=== PATIENT | female | born 1950 | race Caucasian/White ===

== ENCOUNTER → 2017-03-31 09:52 | Outpatient (CLI) | payer MEDICARE, OTHER ==
[2017-03-31 10:19] LABS: HEMATOCRIT 39.4 % (36.0-48.0); HEMOGLOBIN 13.4 g/dL (12-16); MCH 32.4 pg (26.0-34.0); MCV 95.4 fL (80.0-100.0); PLATELET COUNT 251 10x3/uL (130-400); RBC 4.13 10x6/uL (4.00-5.40); RDW 13.3 % (11.5-14.5); WBC 9.3 10x3/uL (4.8-10.8)
[2017-03-31 10:49] LABS: ALBUMIN 3.4 g/dL (3.4-5.0); ANION GAP 11.5 mmol/L (8-16); BILIRUBIN - TOTAL 0.36 mg/dL (0.2-1.3); CALCIUM 8.8 mg/dL (8.5-10.1); CARBON DIOXIDE 29.5 mmol/L (21.0-32.0); CHOL - HDL RATIO 2.7 ratio (2.3-4.1); CREATININE - SERUM 0.9 mg/dL (0.6-1.3); LDL-HDL RATIO 1.5 ratio (1.5-3.5); PROTEIN - SERUM 6.6 g/dL (6.4-8.2); THYROID STIMULATING HORMONE 0.89 uIU/mL (0.36-3.74)
[2017-03-31 10:50] LABS: EOSINOPHILS 1 % (0-7); LYMPHOCYTES 54 % (15-50); MONOCYTES 13 % (2-11); NEUTROPHILS 31 % (40-80)
[2017-03-31 10:51] LABS: PLATELET ESTIMATE NORMAL
== END | disposition home or self-care (01) ==
LOC: D.LAB 09:52
PROVIDERS: Family Medicine
DX: E78.5 Hyperlipidemia, unspecified (principal); I20.9 Angina pectoris, unspecified; R53.83 Other fatigue; Z00.01 Encounter for general adult medical examination with abnormal findings

== ENCOUNTER → 2017-10-03 09:06 | Outpatient (CLI) | payer MEDICARE, OTHER ==
[2017-10-03 09:30] LABS: BASOPHILS 0.3 % (0-2); EOSINOPHILS 1.2 % (0-7); HEMATOCRIT 41.6 % (36.0-48.0); HEMOGLOBIN 14.3 g/dL (12-16); IMMATURE GRANULOCYTES 0.2 % (0-5); LYMPHOCYTES 45.8 % (15-50); MCH 31.9 pg (26.0-34.0); MCHC 34.4 g/dL (31.0-37.0); MCV 92.9 fL (80.0-100.0); MONOCYTES 9.8 % (2-11); NEUTROPHILS 42.7 % (40-80); PLATELET COUNT 285 10x3/uL (130-400); RBC 4.48 10x6/uL (4.00-5.40); RDW 13.3 % (11.5-14.5); WBC 9.9 10x3/uL (4.8-10.8)
[2017-10-03 09:48] LABS: ALBUMIN 3.7 g/dL (3.4-5.0); ALKALINE PHOSPHATASE 85 U/L (46-116); ALT (SGPT) 33 U/L (10-68); BILIRUBIN - TOTAL 0.42 mg/dL (0.2-1.3); CALC OSMOLALITY 281 mosm/kg (275-300); CALCIUM 9.3 mg/dL (8.5-10.1); CHLORIDE - SERUM 103 mmol/L (98-107); CHOL - HDL RATIO 3.4 ratio (2.3-4.1); CHOLESTEROL, TOTAL 224 mg/dL (0-200); CREATININE - SERUM 0.7 mg/dL (0.6-1.3); GLUCOSE 101 mg/dL (74-106); HDL CHOLESTEROL 66 mg/dL (32-96); LDL CHOLESTEROL 139 mg/dL (0-100); LDL-HDL RATIO 2.1 ratio (1.5-3.5); POTASSIUM - SERUM 4.3 mmol/L (3.5-5.1); SODIUM 139 mmol/L (136-145); TRIGLYCERIDE 97 mg/dL (30-200); UREA NITROGEN 23 mg/dL (7-18); eGFR NON AFRICAN AMERICAN 88 mL/min (90-120)
== END | disposition home or self-care (01) ==
LOC: D.LAB 08:00
PROVIDERS: Family Medicine
DX: E78.5 Hyperlipidemia, unspecified (principal); R55 Syncope and collapse

== ENCOUNTER → 2018-04-22 10:06 | Outpatient (CLI) | payer MEDICARE, OTHER ==
[2018-04-22 10:29] LABS: HEMATOCRIT 39.2 % (36.0-48.0); HEMOGLOBIN 13.6 g/dL (12-16); MCH 33.3 pg (26.0-34.0); MCHC 34.7 g/dL (31.0-37.0); MCV 95.8 fL (80.0-100.0); MEAN PLATELET VOLUME 8.9 fL (7.4-10.4); PLATELET COUNT 267 10x3/uL (130-400); RBC 4.09 10x6/uL (4.00-5.40); RDW 13.6 % (11.5-14.5); WBC 10.4 10x3/uL (4.8-10.8)
[2018-04-22 10:59] LABS: ALBUMIN 3.7 g/dL (3.4-5.0); ALKALINE PHOSPHATASE 89 U/L (46-116); ALT (SGPT) 35 U/L (10-68); BILIRUBIN - TOTAL 0.34 mg/dL (0.2-1.3); CALC OSMOLALITY 282 mosm/kg (275-300); CALCIUM 8.7 mg/dL (8.5-10.1); CARBON DIOXIDE 33.8 mmol/L (21.0-32.0); CHLORIDE - SERUM 104 mmol/L (98-107); CHOL - HDL RATIO 4.1 ratio (2.3-4.1); CHOLESTEROL, TOTAL 245 mg/dL (0-200); CREATININE - SERUM 0.7 mg/dL (0.6-1.3); GLUCOSE 87 mg/dL (74-106); HDL CHOLESTEROL 60 mg/dL (32-96); LDL CHOLESTEROL 163 mg/dL (0-100); LDL-HDL RATIO 2.7 ratio (1.5-3.5); POTASSIUM - SERUM 4.5 mmol/L (3.5-5.1); PROTEIN - SERUM 6.4 g/dL (6.4-8.2); SODIUM 141 mmol/L (136-145); THYROID STIMULATING HORMONE 0.93 uIU/mL (0.36-3.74); TRIGLYCERIDE 112 mg/dL (30-200); UREA NITROGEN 21 mg/dL (7-18); eGFR NON AFRICAN AMERICAN 88 mL/min (90-120)
[2018-04-22 11:06] LABS: EOSINOPHILS 2 % (0-7); LYMPHOCYTES 49 % (15-50); MONOCYTES 6 % (2-11); NEUTROPHILS 38 % (40-80); PLATELET ESTIMATE NORMAL
== END | disposition home or self-care (01) ==
LOC: D.LAB 10:06
PROVIDERS: Family Medicine
DX: Z00.01 Encounter for general adult medical examination with abnormal findings (principal); E78.5 Hyperlipidemia, unspecified; I20.8 Other forms of angina pectoris